=== PATIENT | female | born 1995 | race American Indian/Alaskan Native ===

== ENCOUNTER 2016-04-24 00:15 | Emergency (ER) | payer SELFPAY ==
[2016-04-24 02:09] LABS: Basophils % (Auto) 0.2 % (0.0-1.8); Hematocrit 36.1 % (30.3-42.9); Hemoglobin 11.6 gm/dl (10.1-14.3); Mean Corpuscular HGB Conc 32 % (30-34); Mean Corpuscular Hemoglobin 28 pg (28-32); Mean Corpuscular Volume 86 fl (79-97); Platelet Count 231 K/mm3 (140-440); Red Cell Distribution Width 16.2 % (13.2-15.2); White Blood Count 7.8 K/mm3 (4.5-11.0)
[2016-04-24 02:20] LABS: Anion Gap 20 mmol/L; Blood Urea Nitrogen 10 mg/dL (7-17); Calcium 8.8 mg/dL (8.4-10.2); Carbon Dioxide 21 mmol/L (22-30); Glucose 93 mg/dL (65-100); Potassium 3.7 mmol/L (3.6-5.0); Sodium 135 mmol/L (137-145)
[2016-04-24] MEDS ORDERED: ZOFRAN ODT ONE (05:02)
[2016-04-24 05:15] VITALS: BP 109/48
[2016-04-24] MEDS ORDERED: ZOFRAN ODT PO ONE (05:15)
[2016-04-24 05:41] LABS: Bilirubin,Urine NEG (Negative); Blood,Urine NEG (Negative); Ketones,Urine 80 mg/dL (Negative); Leukocyte Esterase,Urine NEG (Negative); Mucus,Urine 3+ /HPF; Nitrite,Urine NEG (Negative); Urobilinogen,Urine < 2.0 mg/dL (<2.0)
== END 2016-04-24 06:20 | disposition left against medical advice (07) ==
LOC: ED 00:15
DX: N89.8 Other specified noninflammatory disorders of vagina (principal); R11.10 Vomiting, unspecified; Z53.21 Procedure and treatment not carried out due to patient leaving prior to being seen by health care provider
CPT/HCPCS: 36415; 80048; 81001; 85025; Q0162

== ENCOUNTER 2017-05-30 11:25 | Emergency (ER) | payer MEDICAID ==
[2017-05-30] MEDS ORDERED: NARCAN 2 MG/2 ML ONE (11:29)
[2017-05-30] MEDS ORDERED: ACTIDOSE SORBITOL ONE (11:29)
[2017-05-30] MEDS ORDERED: ACTIDOSE-AQUA ONE (11:29)
[2017-05-30] MEDS ORDERED: ZOFRAN ONE (11:29)
[2017-05-30] MEDS ORDERED: ACTIDOSE-AQUA PO ONE (11:34)
[2017-05-30] MEDS ORDERED: ACTIDOSE SORBITOL PO ONE (11:34)
[2017-05-30] MEDS ORDERED: NACL 0.9% 1000 ML 2,000 ML IV ONE (11:35)
[2017-05-30] MEDS ORDERED: NARCAN 2 MG/2 ML IV ONE (11:36)
[2017-05-30] MEDS ORDERED: ZOFRAN IV ONE (11:36)
[2017-05-30] MEDS ORDERED: ATIVAN IV ONE ×2 (12:11)
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
[2017-05-30 12:37] LABS: HCG Qualitative,Urine Negative (Negative)
[2017-05-30 12:40] LABS: Bilirubin,Urine NEG (Negative); Blood,Urine NEG (Negative); Color,Urine Red (Yellow); Protein,Urine <15 mg/dL mg/dL (Negative); Urobilinogen,Urine < 2.0 mg/dL (<2.0)
[2017-05-30 12:44] LABS: Basophils % (Auto) 0.3 % (0.0-1.8); Eosinophils % (Auto) 0.6 % (0.0-4.3); Hematocrit 34.5 % (30.3-42.9); Hemoglobin 11.2 gm/dl (10.1-14.3); Lymphocytes # (Auto) 1.5 K/mm3 (1.2-5.4); Lymphocytes % (Auto) 19.9 % (13.4-35.0); Mean Corpuscular HGB Conc 32 % (30-34); Mean Corpuscular Hemoglobin 26 pg (28-32); Mean Corpuscular Volume 81 fl (79-97); Monocytes # (Auto) 0.6 K/mm3 (0.0-0.8); Monocytes % (Auto) 7.6 % (0.0-7.3); Platelet Count 251 K/mm3 (140-440); Red Blood Count 4.25 M/mm3 (3.65-5.03); Red Cell Distribution Width 17.2 % (13.2-15.2)
[2017-05-30 12:44] LABS: Amphetamine Screen,Urine PRESUMPTIVE NEGATIVE; Benzodiazepines Screen,Urine PRESUMPTIVE NEGATIVE; Cocaine Screen,Urine PRESUMPTIVE NEGATIVE; Methadone Screen,Urine PRESUMPTIVE NEGATIVE; Opiate Screen,Urine PRESUMPTIVE NEGATIVE
[2017-05-30 12:51] LABS: BUN/Creatinine Ratio 19; Blood Urea Nitrogen 13 mg/dL (7-17); Calcium 9.1 mg/dL (8.4-10.2); Hemolysis Index 1
[2017-05-30 12:55] LABS: Alanine Aminotransferase 14 units/L (7-56); Albumin 4.4 g/dL (3.9-5); Lipase 19 units/L (13-60)
[2017-05-30 12:57] LABS: Bilirubin,Direct < 0.2 mg/dL (0-0.2)
[2017-05-30 13:23] LABS: Cannabinoid Screen,Urine PRESUMPTIVE POSITIVE
[2017-05-30] MEDS ORDERED: ALUM-MAG HYDROX-SIMETH 200-200-20MG/5ML PO PRN (15:54)
[2017-05-30] MEDS ORDERED: MILK OF MAGNESIA PO PRN (15:54)
[2017-05-30] MEDS ORDERED: TYLENOL PO PRN (15:54)
--- NOTE | 2017-05-30 16:36 | Cat Scan Report ---
FINAL REPORT PROCEDURE: CT HEAD/BRAIN WO CON TECHNIQUE: Computerized tomography of the head was performed without contrast material. HISTORY: headache COMPARISON: No prior studies are available for comparison. FINDINGS: No CT evidence of intracranial mass, hemorrhage, acute territorial infarction, or hydrocephalus. The intracranial arteries are symmetric in density. Calvarium is intact. The paranasal sinuses are not fully imaged. There is mild left ethmoid sinus mucosal thickening. Small amount of fluid is seen in the right mastoid air cells. IMPRESSION: No CT evidence of acute intracranial abnormality. Paranasal sinuses are not fully imaged. However there is left ethmoid sinus mucosal thickening
[2017-05-31 01:02] VITALS: BP 108/60
--- NOTE | 2017-05-31 14:27 | Consultation ---
History of Present Illness - Reason for Consult Consult date: 05/31/17 Reason for consult: Mental Health Evaluation Requesting physician: YANNI NIX - Chief Complaint Chief complaint: "I didn't do anything" - History of Present Psychiatric Illness 22-year-old female who presents for evaluation of mental health for possible overdosing on Ibuprofen. Today the patient is calm and cooperative during the assessment. She stated that she had been arguing with her boyfriend prior to her taking " two pills." She stated that she normally take only one pill for a headache, but decided to take an extra pill. She was asked about safety when taking medications, she stated, "I know about that." Per the ER note, the patient was found on the ground prior to her arrival to the hospital with a bottle of ibuprofen next to her by her boyfriend. She denies SI/HI's and AVH's. She denies erratic sleep and manic episodes in the past. She stated that she smoke marijuana socially, but denies excessive alcohol consumption (etoh). Medications and Allergies Allergies Allergy/AdvReac Type Severity Reaction Status Date / Time No Known Allergies Allergy Verified 01/29/13 00:44 Home Medications Medication Instructions Recorded Confirmed Last Taken Type Ciprofloxacin HCl [Ciprofloxacin 250 mg PO Q12HR #6 tablet 10/06/14 05/30/17 Unknown Rx TAB] Phenazopyridine [Pyridium] 100 mg PO TID #14 tab 10/06/14 05/30/17 Unknown Rx metroNIDAZOLE 0.75%(NF) [Metrogel 1 applicatio TP BID #1 tube 10/06/14 05/30/17 Unknown Rx 0.75% TOPICAL] Past psychiatric history - Past Medical History Past Medical History: No medical history, other Past Surgical History: No surgical history - past Psychiatric treatment and history psychiatric treatment history: Denies a psy hx and fam psy hx. - Social History Social history: lives with family Mental Status Exam - Vital signs Last Vital Signs Temp 98.8 F 05/30/17 20:32 Pulse 73 05/30/17 20:32 Resp 18 05/30/17 20:32 BP 108/60 05/30/17 20:32 Pulse Ox 100 05/30/17 20:32 - Exam Narrative exam: MSE: Appearance: calm, cooperative Behavior: regular eye contact Speech: regular rate and tone Mood: "okay" Affect: congruent to mood Thought Process: circumstantial Thought Content: denies SI/HI's and AVH's Motor Activity: sitting up in bed Cognition: A/O x3 Insight: variable Judgment: variable Results Result Diagrams: 05/30/17 12:15 05/30/17 12:15 Abnormal lab results 05/30/17 05/30/17 05/30/17 Range/Units 12:15 13:50 16:20 MCH 26 L (28-32) pg RDW 17.2 H (13.2-15.2) % Stearns % (Auto) 7.6 H (0.0-7.3) % Seg Neutrophils % 71.6 H (40.0-70.0) % Salicylates < 0.3 L (2.8-20.0) mg/dL Acetaminophen < 5.0 L (10.0-30.0) ug/mL 05/30/17 Range/Units 16:20 MCH (28-32) pg RDW (13.2-15.2) % Stearns % (Auto) (0.0-7.3) % Seg Neutrophils % (40.0-70.0) % Salicylates < 0.3 L (2.8-20.0) mg/dL Acetaminophen (10.0-30.0) ug/mL All other labs normal. Assessment and Plan Assessment and plan: Impression: Unspecified Mood DO. Cannabis Use DO. Today the patient is calm and cooperative during the assessment. Overdosed on Ibuprofen. DDx: MDD single episode, R/O Bipolar DO, R/O Substance Induced Mood DO Recommendation/Plan: Continue 1013 with placement to [place] today.
== END 2017-05-31 10:47 ==
LOC: EEVIPCON 11:25 → ED 11:25
DX: E86.0 Dehydration (principal); R10.13 Epigastric pain; J45.909 Unspecified asthma, uncomplicated; F17.200 Nicotine dependence, unspecified, uncomplicated
CPT/HCPCS: 36415; 70450; 80048; 80074; 80307; 81001; 81025; 82140; 82550; 83690; 83735; 85025; 93005; 96361; 96374; 96375; 99284; G0480; J2060; J2310; J2405; J7030; 80320; 93010